=== PATIENT | female | born 1995 | race Caucasian/White ===

== ENCOUNTER 2018-03-20 19:41 | Emergency (ER) | payer OTHER | END 2018-03-20 23:24 | disposition home or self-care (01) | LOC: FTE 19:41 | DX: H10.32 Unspecified acute conjunctivitis, left eye (principal) | CPT/HCPCS: 99283; Z7502 ==

== ENCOUNTER 2018-11-09 11:03 | Emergency (ER) | payer OTHER | END 2018-11-09 12:20 | disposition home or self-care (01) | LOC: FTE 11:03 | DX: R10.2 Pelvic and perineal pain (principal) | CPT/HCPCS: 99283; Z7502 ==